=== PATIENT | female | born 1985 | race Caucasian/White ===

== ENCOUNTER 2017-08-15 13:27 | Emergency (ER) | payer OTHER ==
[~2017-08-15] VITALS: Ht 167.6 cm; Wt 93.8 kg
[2017-08-15 13:54] LABS: HEMATOCRIT 42.8 % (36.0-46.0); HEMOGLOBIN 13.9 G/DL (11.9-15.5); MCH 27.8 PG (29.0-34.0); MCHC 32.5 G/DL (30.0-36.0); MCV 85.6 FL (83-99); PLATELET COUNT 355 K/uL (156-360); RBC DIS.WIDTH-CV 13.2 % (11.8-14.6); RBC DIS.WIDTH-SD 41.1 % (39-53); WHITE BLOOD COUNT 10.2 K/uL (4.1-10.2)
[2017-08-15 14:06] LABS: CHLORIDE 109 mEq/L (99-109); POTASSIUM 3.8 mEq/L (3.7-5.4); SODIUM 144 mEq/L (136-147)
[2017-08-15 14:08] LABS: GLUCOSE 91 mg/dL (70-99)
[2017-08-15 14:12] LABS: CREATININE 0.9 mg/dL (0.6-1.3); GFR ESTIMATE (CALCULATED) > 59 mL/min/
[2017-08-15 14:13] LABS: UREA NITROGEN (BUN) 12 mg/dL (9-23)
[2017-08-15 14:16] LABS: TROP-I INTERPRETATION NEGATIVE; TROPONIN-I < 0.01 ng/mL (0.0-0.30)
[2017-08-15 16:00] LABS: D-DIMER ELISA < 150.00 ng/mLDDU (<230)
[2017-08-15 17:01] VITALS: BP 111/74
== END 2017-08-15 17:01 | disposition home or self-care (01) ==
LOC: EME 13:27
PROVIDERS: Emergency Medicine
DX: R07.9 Chest pain, unspecified (principal); F17.200 Nicotine dependence, unspecified, uncomplicated
CPT/HCPCS: 71046; 80048; 84484; 85027; 85379; 93005; 99281; 99284